=== PATIENT | female | born 1940 | race Caucasian/White ===

== ENCOUNTER → 2016-10-20 | Outpatient (CLI) | payer MEDICARE | END | disposition home or self-care (01) | LOC: PCVCCLINIC 15:30 | PROVIDERS: ATTEND Internal Medicine Cardiovascular Disease | DX: E78.00 Pure hypercholesterolemia, unspecified (principal); G40.909 Epilepsy, unspecified, not intractable, without status epilepticus; G45.9 Transient cerebral ischemic attack, unspecified; I44.7 Left bundle-branch block, unspecified; I10 Essential (primary) hypertension; R07.89 Other chest pain; R53.83 Other fatigue; Z82.49 Family history of ischemic heart disease and other diseases of the circulatory system | CPT/HCPCS: 80061; 93005; G0463 ==

== ENCOUNTER → 2017-07-10 | Outpatient (CLI) | payer MEDICARE ==
--- NOTE | 2017-07-10 16:52 | PCVCIMAG ---
APPROVED REPORT Exam: Stress Echocardiogram Indication: LBBB, Fam hx CAD, HTN, HLP Patient Location: Echo lab Stress Nurse: Gauri Siddiqui RN Status: routine Ht: 5 ft 5 in HR: 90 bpm BP: 126/70 mmHg Rhythm: LBBB Procedure The patient underwent an Exercise Stress Test using the Joaquin Protocol. Blood pressure, heart rate, and EKG were monitored. An Echocardiogram was performed by personnel technician in four stages in quad fashion. At peak stress, four selected images were obtained and placed side by side with resting images for comparison. Stress Test Details Stress Test: Exercise stress testing was performed using a Joaquin protocol. HR Resting HR: 90 bpmMax Heart Rate (APMHR): 142 bpm Max HR Achieved: 146 bpmTarget HR (85% APMHR): 120 bpm % of APMHR: 102 Recovery HR: 96 bpm HR response to stress: Normal HR response to stress BP Resting BP: 126/70 mmHg Max BP: 160/68 mmHg Recovery BP: 134/60 mmHg ECG Resting ECG: LBBB Stress ECG: Sinus Rhythm, LBBB ST Change: Nondiagnostic due to LBBB Recovery ECG: Sinus Rhythm, LBBB Recovery ST Change: Nondiagnostic due to LBBB Clinical Reason for Termination: Maximal effort Stress Symptoms: Dyspnea Exercise duration: 6 min sec Highest Stage Achieved: Stage 2: 2.5 mph at 12% grade. Exercise capacity: 7 METs Pre-Stress Echo The resting Echocardiogram showed normal left ventricular contractility with an estimated Ejection Fraction of about 50%. Normal wall motion in all segments on baseline images. Discordant septal motion consistent with LBBB. Post-Stress Echo The stress Echocardiogram showed normal left ventricular contractility with an estimated Ejection Fraction of about 60%. Normal augmentation of wall motion in all segments on post stress images. Discordant Septal motion consistent with LBBB. Clinical No clinical or ECG evidence for ischemia. Conclusion Clinical Response: Non-ischemic Exercise Capacity: Average Stress ECG Response: Non-diagnostic Stress Echo Images: Non-ischemic The left ventricle is normal in size and wall thickness in both the rest and stress images. Other Information Study Quality: Adequate <Conclusion> The left ventricle is normal in size and wall thickness in both the rest and stress images.
== END | disposition home or self-care (01) ==
LOC: PCVCIMAG 13:00
PROVIDERS: ATTEND Internal Medicine Cardiovascular Disease
DX: I44.7 Left bundle-branch block, unspecified (principal); I10 Essential (primary) hypertension; E78.5 Hyperlipidemia, unspecified; R07.9 Chest pain, unspecified; R53.83 Other fatigue; Z82.49 Family history of ischemic heart disease and other diseases of the circulatory system
CPT/HCPCS: 93325; 93351

== ENCOUNTER → 2018-01-26 | Outpatient (CLI) | payer MEDICARE | END | disposition home or self-care (01) | LOC: PCVCCLINIC 13:11 | DX: I10 Essential (primary) hypertension (principal); I44.7 Left bundle-branch block, unspecified; I60.9 Nontraumatic subarachnoid hemorrhage, unspecified; E78.00 Pure hypercholesterolemia, unspecified; G45.9 Transient cerebral ischemic attack, unspecified; Z79.899 Other long term (current) drug therapy | CPT/HCPCS: 80061; 93005; G0463 ==

== ENCOUNTER → 2019-01-07 | Outpatient (CLI) | payer MEDICARE ==
--- NOTE | 2019-01-07 14:19 | PCVCIMAG ---
APPROVED REPORT Study performed: 01/07/2019 12:06:03 Exam: Stress Echocardiogram Indication: Hypertension, Hyperlipidemia Patient Location: Echo lab Stress Nurse: Shobha Delvalle RN Status: routine Ht: 5 ft 5 in HR: 73 bpm BP: 136/70 mmHg Rhythm: LBBB Procedure The patient underwent an Exercise Stress Test using an abbreviated Joaquin protocol. Blood pressure, heart rate, and EKG were monitored. An Echocardiogram was performed by oil and gas exploration technician in four stages in quad fashion. At peak stress, four selected images were obtained and placed side by side with resting images for comparison. Stress Test Details Stress Test: Exercise stress testing was performed using an abbreviated Joaquin protocol. HR Resting HR: 73 bpmMax Heart Rate (APMHR): 141 bpm Max HR Achieved: 144 bpmTarget HR (85% APMHR): 119 bpm % of APMHR: 102 Recovery HR: 88 bpm HR response to stress: Normal HR response to stress BP Resting BP: 136/70 mmHg Max BP: 160/70 mmHg Recovery BP: 122/68 mmHg BP response to stress: Normal blood pressure response to stress. ECG Resting ECG: Sinus Rhythm, LBBB Stress ECG: Sinus Rhythm, LBBB ST Change: Nondiagnostic due to LBBB Recovery ECG: Sinus Rhythm, LBBB Recovery ST Change: Nondiagnostic due to LBBB Clinical Reason for Termination: Maximal effort Exercise duration: 6 min 00 sec Highest Stage Achieved: Stage 2: 1.7 mph at 11% grade. Exercise capacity: 4.80 METs Overall Exercise Capacity for Age: Poor Stress ECG Conclusion Clinical: Non-ischemic ECG: Non-diagnostic Pre-Stress Echo The resting Echocardiogram showed normal left ventricular contractility with an estimated Ejection Fraction of about 50%. Normal wall motion in all segments on baseline images. Discordant septal motion consistent with LBBB. Post-Stress Echo The stress Echocardiogram showed normal left ventricular contractility with an estimated Ejection Fraction of about 60%. Normal augmentation of wall motion in all segments on post stress images. Discordant septal motion consistent with LBBB. Clinical No clinical or ECG evidence for ischemia. Conclusion Clinical Response: Non-ischemic Exercise Capacity: Below Average Stress ECG Response: Non-diagnostic Stress Echo Images: Non-ischemic The left ventricle is normal in size and wall thickness in both the rest and stress images. Other Information Study Quality: Adequate <Conclusion> The left ventricle is normal in size and wall thickness in both the rest and stress images.
== END | disposition home or self-care (01) ==
LOC: PCVCIMAG 11:57
PROVIDERS: ATTEND Internal Medicine Cardiovascular Disease
DX: I10 Essential (primary) hypertension (principal); E78.5 Hyperlipidemia, unspecified; I44.7 Left bundle-branch block, unspecified; R07.9 Chest pain, unspecified; R53.83 Other fatigue; E78.00 Pure hypercholesterolemia, unspecified
CPT/HCPCS: 93325; 93351